=== PATIENT | male | born 1955 | race Caucasian/White ===

== ENCOUNTER 2018-01-14 04:46 | Emergency (ER) | payer OTHER ==
[2018-01-14 05:43] LABS: ABSOLUTE EOSINOPHILS # (AUTO) 0.1 10^3/uL (0.0-0.6); ABSOLUTE LYMPHOCYTES (AUTO) 1.5 10^3/uL (0.5-4.7); ABSOLUTE MONOCYTES (AUTO) 0.5 10^3/uL (0.1-1.4); ABSOLUTE NEUT (AUTO) 4.8 10^3/uL (1.7-8.2); BASOPHILS % (AUTO) 0.5 % (0-2); EOSINOPHILS % (AUTO) 1.9 % (0-6); HEMATOCRIT 47.9 % (37.9-51.0); HEMOGLOBIN 17.1 g/dL (13.5-17.0); LYMPHOCYTES % (AUTO) 21.2 % (13-45); MEAN CORPUSCULAR HEMOGLOBIN 31.9 pg (27.0-33.4); MEAN CORPUSCULAR HGB CONC 35.8 g/dL (32.0-36.0); MEAN CORPUSCULAR VOLUME 89 fl (80-97); MONOCYTES % (AUTO) 7.8 % (3-13); PLATELET COUNT 200 10^3/uL (150-450); RED BLOOD COUNT 5.37 10^6/uL (4.35-5.55); SEGMENTED NEUTROPHILS % (AUTO) 68.6 % (42-78); TOTAL CELLS COUNTED % (AUTO) 100 %
[2018-01-14 05:50] LABS: ANION GAP 12 (5-19)
[2018-01-14 06:04] LABS: CREATINE KINASE MB 2.42 ng/mL (<4.55)
--- NOTE | 2018-01-14 06:05 | RADIOLOGY REPORT (SQ) ---
EXAM DESCRIPTION: CT HEAD WITHOUT CLINICAL HISTORY: syncope, nasal injury COMPARISON: None available TECHNIQUE: Axial CT of the head obtained from the skull apex to the skull base without contrast. FINDINGS: No acute intracranial hemorrhage identified. No mass, mass effect, shift of the midline, abnormal extra-axial fluid collection or CT evidence of acute ischemic change identified. The ventricular system and sulcal spaces are mildly enlarged compatible with mild cerebral atrophy. Scattered areas of hypodensity throughout the supratentorial white matter are nonspecific and may be related to chronic small vessel ischemic change. The visualized paranasal sinuses and the mastoids are clear. No skull fracture identified. Visualized orbits and globes are unremarkable. Atherosclerotic calcification of the intracranial internal carotid arteries. Laceration of the nose with likely nondisplaced right nasal bone fracture. DLP:1106.28 mGy-cm IMPRESSION: 1. No acute intracranial abnormality by CT criteria. 2. Likely nondisplaced right nasal bone fracture. This exam was performed according to our departmental dose-optimization program, which includes automated exposure control, adjustment of the mA and/or kV according to patient size and/or use of iterative reconstruction technique.
--- NOTE | 2018-01-14 06:11 | ER Document Report ---
ED Syncope and Near Syncope - General Chief Complaint: Syncope Stated Complaint: POSSIBLE SYNCOPAL EPISODE Time Seen by Provider: 01/14/18 06:10 Notes: 62-year-old male to the emergency department chief complaint of syncopal episode , nose pain, right hand pain. Patient states that he was up until 2 AM this morning doing some work. Here from out of town. [place] sudden onset of the need to vomit. Made his way to the bathroom. Before he made it to the toilet he passed out. Hit his face and right hand. Woke up in a pool of blood and feces. States that he had watery diarrhea all over the bathroom floor in his legs. Then vomited. Denied any chest pain, shortness of breath. States that after this episode he feels much better. Just complaining now of pain in the nose and right hand. Couple of abrasions on his knees. This happened in a hotel room shortly prior to arrival. Patient denies any history of heart problems. Denies any medication usage is. Takes an occasional vitamin but nothing else. Has never had a heart attack. - Related Data Allergies/Adverse Reactions: No Known Allergies Allergy (Unverified 01/14/18 04:54) Past Medical History - General Information source: Patient - Social History Smoking Status: Never Smoker Cigarette use (# per day): No Frequency of alcohol use: None Drug Abuse: None Lives with: Family Family History: Reviewed & Not Pertinent Patient has suicidal ideation: No Patient has homicidal ideation: No - Medical History Medical History: Negative Renal/ Medical History: Denies: Hx Peritoneal Dialysis Review of Systems - Review of Systems Constitutional: No symptoms reported. denies: Fever, Malaise, Weakness EENT: No symptoms reported, Nose pain. denies: Blurred vision, Tearing, Double vision, Ear pain, Throat swelling, Mouth pain Cardiovascular: No symptoms reported, Syncope. denies: Chest pain, Palpitations , Heart racing, Orthopnea, Dyspnea, Dizziness, Edema Respiratory: No symptoms reported. denies: Cough, Hurts to breathe, Short of breath, Wheezing Gastrointestinal: No symptoms reported, Diarrhea, Nausea, Vomiting. denies: Abdominal pain, Constipation, Blood streaked bowels Genitourinary: No symptoms reported. denies: Burning, Dysuria, Discharge Male Genitourinary: No symptoms reported Musculoskeletal: No symptoms reported, Joint pain, Other. denies: Back pain, Gout, Neck pain, Deformity Skin: No symptoms reported Hematologic/Lymphatic: No symptoms reported Neurological/Psychological: No symptoms reported. denies: Confusion - Pain in right hand, Dementia, Depression Physical Exam - Vital signs Vitals: Temp Pulse Resp BP Pulse Ox 97.9 F 79 18 135/76 H 98 01/14/18 04:50 01/14/18 04:50 01/14/18 04:50 01/14/18 04:50 01/14/18 04:50 Interpretation: Normal - General General appearance: Appears well, Alert - HEENT Head: Normocephalic, Atraumatic Eyes: Normal Pupils: PERRL Nasal: Other - There is a 1 cm laceration on the bridge of the nose. Tenderness to palpation - Respiratory Respiratory status: No respiratory distress Chest status: Nontender Breath sounds: Normal Chest palpation: Normal - Cardiovascular Rhythm: Regular Heart sounds: Normal auscultation Murmur: No - Abdominal Inspection: Normal Distension: No distension Bowel sounds: Normal Tenderness: Nontender Organomegaly: No organomegaly - Back Back: Normal, Nontender - Extremities General upper extremity: Normal inspection, Tender, Normal color, Normal ROM, Normal temperature, Other - Tenderness to palpation at the fourth and fifth metacarpal on the right hand. No wrist tenderness. No deformity noted. General lower extremity: Normal inspection, Nontender, Normal color, Normal ROM , Normal temperature, Normal weight bearing. No: Gia's sign - Neurological Neuro grossly intact: Yes Cognition: Normal Orientation: AAOx4 Jovany Coma Scale Eye Opening: Spontaneous Sanders Coma Scale Verbal: Oriented Jovany Coma Scale Motor: Obeys Commands Sanders Coma Scale Total: 15 Speech: Normal Motor strength normal: LUE, RUE, LLE, RLE Sensory: Normal - Psychological Associated symptoms: Normal affect, Normal mood - Skin Skin Temperature: Warm Skin Moisture: Dry Skin Color: Normal, Other - Laceration noted 1.0 cm on the bridge of the nose. There are abrasions noted to the bilateral patella Course - Re-evaluation Re-evalutation: 01/14/18 06:50 Patient with acute syncopal episode preceded by nausea. This is always concerning for potential cardiac issue. Cardiac labs ordered, EKG, chest x-ray , head CT, hand x-ray and chest x-ray ordered. EKG reveals a normal sinus rhythm with a heart rate of 68 with some borderline left axis deviation. No signs of ischemia. Will repair laceration. 01/14/18 08:10 Patient was not sure when his tetanus shot was given but refused tetanus. States that he will follow-up with his regular doctor. 4 sutures were placed. No complications. Splint placed on right hand. Reexamined after splint placement. No defect in capillary refill. Neurovascularly intact. Patient advised to follow-up with his regular doctor for repeat x-rays of his hand as well. First set of labs are unremarkable. Will repeat troponin to make sure there is no change. Of note, after visiting with patient for quite some time while doing the sutures reports that he has recently started doing intermittent fasting. Patient had not eaten for 28 hours and was up until 2 AM. States that he stood up very quickly thinking that he was going to throw up and this is when he passed out. It is quite possible that his extended fast has led to some electrolyte shift causing some diarrhea. His labs are unremarkable but this would definitely explain why he would be more prone to syncopal episode as prolonged fasting and definitely induce diarrhea and cause transient hypotension as well as hypoglycemia. Glucose level is unremarkable. Patient is awake and alert denies any symptoms at this time other than pain in his nose. 01/14/18 10:19 Second cardiac troponin negative. Patient feels like he wants to go home. Having observed now for almost 5 hours. Comfortable DC. - Vital Signs Vital signs: Temp Pulse Resp BP Pulse Ox 97.9 F 79 17 122/72 96 01/14/18 04:50 01/14/18 04:50 01/14/18 07:01 01/14/18 07:01 01/14/18 07:01 - Laboratory Result Diagrams: 01/14/18 05:10 01/14/18 05:10 Laboratory results interpreted by me: 01/14/18 01/14/18 01/14/18 05:10 05:10 09:10 Hgb 17.1 H Chloride 108 H BUN 21 H Urine Urobilinogen 4.0 H - EKG Interpretation by Ct EKG shows normal: Sinus rhythm, Intervals, QRS Complexes, ST-T Waves. abnormal : [place] Independence/QRS: Left axis deviation - Borderline left axis Procedures - Laceration/Wound Repair Face Time completed: 08:03 Wound length (cm): 1 Wound's Depth, Shape: Linear Laceration pre-procedure: Betadine prep applied, Shur-Clens applied Anesthetic type: 1% Lidocaine Volume Anesthetic (mLs): 5 Wound explored: Clean Wound Repaired With: Sutures Suture Size/Type: 5:0, Prolene Number of Sutures: 4 Layer Closure?: No Post-procedure wound care: Sterile dressing applied Post-procedure NV exam normal: Yes Complications: No Discharge - Discharge Clinical Impression: Syncope and collapse Nasal laceration Qualifiers: Encounter type: initial encounter Qualified Code(s): S01.21XA - Laceration without foreign body of nose, initial encounter Nasal bone fracture Qualifiers: Encounter type: initial encounter Fracture type: open Qualified Code(s): S02.2XXB - Fracture of nasal bones, initial encounter for open fracture Hand contusion Qualifiers: Encounter type: initial encounter Laterality: right Qualified Code(s): S60.221A - Contusion of right hand, initial encounter Condition: Good Disposition: HOME, SELF-CARE Instructions: Contusion ([facility]), Fracture of the Nose ([facility]), Laceration Care ([facility] ), Prophylactic Antibiotic ([facility]), Syncopal Episode ([facility]) Additional Instructions: Please follow-up with your regular doctor for suture removal within 5 days. Take antibiotics as instructed as technically this is considered an open fracture. Please discuss tetanus prophylaxis with your physician. You were offered a tetanus shot today however you have decided against it. In the event that you develop chest pain, shortness of breath, passing out again, worsening signs or symptoms please return immediately. Prescriptions: Cephalexin Monohydrate [Keflex 500 mg Capsule] 500 mg PO Q6H 5 Days capsule Hydrocodone/Acetaminophen [Hughes 5-325 mg Tablet] 1 tab PO TID PRN 3 Days #9 tablet PRN Reason: Pain Scale Of 3
[2018-01-14 06:13] LABS: TROPONIN I < 0.012 ng/mL
--- NOTE | 2018-01-14 06:16 | RADIOLOGY REPORT (SQ) ---
EXAM DESCRIPTION: HAND RIGHT 3 VIEWS CLINICAL HISTORY: syncope. Pain in the fifth metacarpal region. COMPARISON: None. FINDINGS: 3 views of the right hand. No acute fracture or dislocation. Normal osseous mineralization. No radiopaque foreign body. IMPRESSION: No acute fracture or dislocation.
[2018-01-14 06:36] LABS: ALANINE AMINOTRANSFERASE 43 U/L (21-72); ALBUMIN 4.4 g/dL (3.5-5.0); ALKALINE PHOSPHATASE 59 U/L (38-126); ASPARTATE AMINO TRANSFERASE 39 U/L (17-59); BILIRUBIN,DIRECT 0.3 mg/dL (0.0-0.4); BILIRUBIN,TOTAL 0.9 mg/dL (0.2-1.3); BLOOD UREA NITROGEN 21 mg/dL (7-20); CARBON DIOXIDE 23 mmol/L (22-30); CHLORIDE 108 mmol/L (98-107); CREATINE KINASE 150 U/L (55-170); GLUCOSE 101 mg/dL (75-110); POTASSIUM 3.7 mmol/L (3.6-5.0); SODIUM 142.6 mmol/L (137-145)
[2018-01-14] MEDS ORDERED: LIDOCAINE 1% INJ-PF (10 MG/ML) 30 ML SDV INJ ONE (07:09)
--- NOTE | 2018-01-14 07:27 | RADIOLOGY REPORT (SQ) ---
EXAM DESCRIPTION: CHEST PA/LAT CLINICAL HISTORY: syncope COMPARISON: None. FINDINGS: Frontal and lateral views of the chest. The cardiomediastinal silhouette has normal size and contour. No consolidation, pneumothorax, or pleural effusion. No displaced rib fractures identified. Leads overlie the chest. Upper abdominal soft tissues are unremarkable. IMPRESSION: 1. No acute pulmonary process identified.
[2018-01-14] MEDS ORDERED: IBUPROFEN 600 MG TABLET PO PRN (08:13)
[2018-01-14] MEDS ORDERED: CEPHALEXIN 500 MG CAPSULE PO ONE (08:13)
--- NOTE | 2018-01-14 09:31 | EKG REPORT ---
SEVERITY:- OTHERWISE NORMAL ECG - SINUS RHYTHM BORDERLINE LEFT AXIS DEVIATION : Confirmed by: Nabil Monsalve 14-Jan-2018 09:31:12
[2018-01-14 10:06] LABS: APPEARANCE,URINE CLOUDY; BILIRUBIN,URINE NEGATIVE (NEGATIVE); CALCIUM OXALATE CRYSTALS,URINE MANY /HPF; COLOR,URINE YELLOW; GLUCOSE, URINE NEGATIVE (NEGATIVE); KETONES,URINE NEGATIVE (NEGATIVE); LEUKOCYTE ESTERASE,URINE NEGATIVE (NEGATIVE); NITRITE,URINE NEGATIVE (NEGATIVE); PROTEIN,URINE NEGATIVE (NEGATIVE)
[2018-01-14 10:41] VITALS: BP 128/83
== END 2018-01-14 11:01 | disposition home or self-care (01) ==
LOC: ER 04:46
DX: R55 Syncope and collapse (principal); S02.2XXB Fracture of nasal bones, initial encounter for open fracture; S60.221A Contusion of right hand, initial encounter; S80.212A Abrasion, left knee, initial encounter; S80.211A Abrasion, right knee, initial encounter; W19.XXXA Unspecified fall, initial encounter; Y93.89 Activity, other specified; Y92.59 Other trade areas as the place of occurrence of the external cause; R15.9 Full incontinence of feces; R19.7 Diarrhea, unspecified; R11.2 Nausea with vomiting, unspecified
CPT/HCPCS: 93005; 99284; 36415; 82553; 82550; 85025; 80053; 81001; 84484; 71046; 73130; 70450; 93010; 12011; J3490